=== PATIENT | male | born 1990 | race Caucasian/White ===

== ENCOUNTER 2018-06-11 15:31 | Emergency (ER) | payer OTHER, MEDICAID ==
[2018-06-11] MEDS ORDERED: IBUPROFEN 600 MG TAB PO ONE ×2 (16:34→17:00)
--- NOTE | 2018-06-11 16:38 | EDPHY ---
H & P Time Seen by Provider: 06/11/18 16:02 HPI/ROS: HPI Fall, right-sided rib pain. 28-year-old male by private vehicle. This patient reports that he was walking on a sidewalk on Friday. He misstepped and fell landing primarily on his right anterior lateral chest wall. He complains of pain to the right lower anterior lateral ribs and the right upper mid clavicle region. He denies striking his head. There was no loss of consciousness. He denies any neck pain or back pain. Denies any extremity pain. No loss of sensation or weakness in his extremities. He has no other complaint. ROS: Constitutional: No fever, no chills. No weakness. Eyes: No discharge. No changes in vision. ENT: No sore throat. No nasal congestion or rhinorrhea. Respiratory: No cough. No shortness of breath. Cardiac: No chest pain, no palpitations. Gastrointestinal: No abdominal pain, no vomiting, no diarrhea. Genitourinary: No hematuria. No dysuria or increased frequency with urination. Musculoskeletal: No back pain. No neck pain. As above. Skin: No rashes. Neurological: No headache. No focal weakness or altered sensation. Past medical history: Unspecified heart valve problem. Social history: Nonsmoker. No alcohol. Here by himself. Physical Exam: General Appearance: Alert, no distress. Large man. Obese habitus. This patient is responding to questions appropriately and in full sentences. This patient appears well-hydrated and well-nourished. Head: Normocephalic atraumatic. Face: Facial bones are stable on palpation. Eyes: Pupils equal and round and reactive to light, no pallor or injection. No lid erythema or edema. ENT, Mouth: Mucous membranes moist. Dentition is intact. No malocclusion of the jaw. No tongue lacerations or abrasions. Pharynx is clear. The bilateral nasal canals are clear. No septal hematoma. Respiratory: There are no retractions, lungs are clear to auscultation with good air movement bilaterally. Tenderness on palpation of the right lower anterior lateral rib area between the midclavicular line and mid axillary line. No bony step-off or deformity noted on palpation of this area. No associated soft tissue swelling, ecchymosis or erythema. He also has tenderness on palpation which is mild over the right lateral clavicular area. Again, no bony deformity noted on palpation of the clavicle. No soft tissue swelling or ecchymosis noted on gross inspection of this area. Chest wall is stable to AP and lateral palpation. Cardiovascular: Regular rate and rhythm. No murmur. Gastrointestinal: Abdomen is soft and nontender, no masses, bowel sounds normal. Neurological: Motor sensory function is intact. Cranial nerves are normal. Cerebellar function intact. Skin: Warm and dry, no rashes. No lacerations, abrasions or contusions. Musculoskeletal: Neck is supple and nontender. The trachea is midline. No midline cervical, thoracic, lumbar or sacral tenderness on palpation. No flank tenderness on palpation. Extremities are symmetrical, full range of motion. All joints in the bilateral upper and bilateral lower extremities range without pain or impingement. No tenderness on palpation of the long bones in the bilateral upper and bilateral lower extremities. Psychiatric: No agitation. No depression. Database: EKG: Imaging: Right-sided rib series x-ray with PA chest: Negative for displaced rib fracture. No pneumothorax or other traumatic pathology. Interpreted by me. Procedures: Emergency department course: Triage vital signs reviewed. Vital signs are normal. Patient given 600 mg of ibuprofen. Sent for x-rays as noted above. 5:35 p.m., patient re-evaluated. He appears comfortable. He is sitting up on the gurney. I discussed the results of his x-rays with him. He feels comfortable going home and I feel he is safe for discharge. He will be treated with high-dose ibuprofen over the next 3 days. He has been instructed to follow up with his primary care physician for re-evaluation in 2-3 days. Return to emergency department precautions of thoroughly been reviewed with him. All of his questions were answered. He was discharged in good condition. Differential Diagnosis: The differential diagnosis on this patient includes but is not limited to right chest wall contusion, rib fracture. Pneumothorax, acute spinal traumatic injury , other significant traumatic injury unlikely. This represents a partial list of diagnoses considered. These considerations are based on history, physical exam, past history, reassessment and diagnostic testing. Smoking Status: Never smoked Constitutional: Initial Vital Signs Temperature (C) 36.3 C 06/11/18 15:40 Heart Rate 76 06/11/18 15:40 Respiratory Rate 17 06/11/18 15:40 Blood Pressure 136/98 H 06/11/18 15:40 O2 Sat (%) 94 06/11/18 15:40 O2 Delivery Mode Room Air Allergies/Adverse Reactions: amoxicillin [Amoxicillin] Allergy (Mild, Verified 06/11/18 15:39) Rash hay Allergy (Uncoded 11/03/16 13:07) Home Medications: Medication Instructions Recorded lamoTRIgine [Lamictal] 0 mg PO DAILY 01/21/11 risperiDONE [Risperdal] 1 mg PO BID 02/19/11 Medical Decision Making - Diagnostics Imaging Results: Imaging Impressions Ribs w/Chest X-Ray 06/11/18 16:11 Impression: Negative for displaced rib fracture. - Data Points Medications Given: Discontinued Medications Ibuprofen (Motrin) 600 mg PO EDNOW ONE Stop: 06/11/18 16:35 Last Admin: 06/11/18 16:59 Dose: 600 mg Departure - Departure Disposition: Home, Routine, Self-Care Clinical Impression: Chest wall contusion Condition: Good Instructions: Rib Fracture (ED) Additional Instructions: Read and follow provided instructions. Follow-up with your primary care physician in 1-2 days for re-evaluation. Ibuprofen dosin mg every 6 hours with meals for the next 3 days only. Take only as needed for pain. Return to the emergency department for worsening pain, cough, fever, difficulty breathing or other serious concerns. Referrals: Jamila Maloney [Primary Care Provider] - As per Instructions
[2018-06-11 18:06] VITALS: BP 133/80
== END 2018-06-11 18:06 | disposition home or self-care (01) ==
DX: S20.20XA Contusion of thorax, unspecified, initial encounter (principal); W01.0XXA Fall on same level from slipping, tripping and stumbling without subsequent striking against object, initial encounter; Y92.480 Sidewalk as the place of occurrence of the external cause; Y99.8 Other external cause status; Y93.01 Activity, walking, marching and hiking

== ENCOUNTER 2019-03-04 01:19 | Emergency (ER) | payer OTHER, MEDICAID ==
--- NOTE | 2019-03-04 01:45 | EDPHY ---
H & P Stated Complaint: prairie dog bite left finger Time Seen by Provider: 03/04/19 01:45 HPI/ROS: HPI CHIEF COMPLAINT: Bit on left index finger by prairie dog. HISTORY OF PRESENT ILLNESS: This patient is a 29-year-old male, history of Asperger's, presents emergency room stating that he got bit on the left index finger by a park dog earlier today. He immediately washed his wound. He now presents emergency room he is concerned that he may be infected with rabies. He states he was bit in index finger by [place] local [place]. Patient unsure if his tetanus shot is up-to-date. He does not recall. Past Medical History: Asperger Past Surgical History: Denies significant surgical Social History: Denies drugs alcohol tobacco. Family History: Noncontributory ROS REVIEW OF SYSTEMS: 10 Systems were reviewed and negative with the exception of the elements mentioned in the history of present illness. Exam Constitutional triage nursing summary reviewed, vital signs reviewed, awake/ alert. Eyes normal conjunctivae and sclera, EOMI, PERRLA. HENT normal inspection, atraumatic, moist mucus membranes, no epistaxis, neck supple/ no meningismus, no raccoon eyes. Respiratory clear to auscultation bilaterally, normal breath sounds, no respiratory distress, no wheezing. Cardiovascular rate normal, regular rhythm, no murmur, no edema, distal pulses normal. Gastrointestinal soft, non-tender, no rebound, no guarding, normal bowel sounds, no distension, no pulsatile mass. Genitourinary no CVA tenderness. Musculoskeletal no midline vertebral tenderness, full range of motion, no calf swelling, no tenderness of extremities, no meningismus, good pulses, neurovascularly intact. Skin left index finger: Distal aspect a small less than half a cm abrasion present, no deep laceration or puncture wound no signs of infection on exam good cap refill, neurovascular intact. Neurologic awake, alert and oriented x 3, AAOx3, moves all 4 extremities equally, motor intact, sensory intact, CN II-XII intact, normal cerebellar, normal vision, normal speech. Psychiatric normal mood/affect. Heme/Lymph/Immune no lymphadenopathy. Differential Diagnosis: Includes but is not limited to in a particular soft tissue injury, finger wound, finger contusion, laceration, need for tetanus shot Medical Decision Making: Plan for this patient update his tetanus shot, and re- evaluate. Re-evaluation: Patient's tetanus shot has been updated. I spoke with Infectious Disease Dr. Moran, discussed case in detail. She does not recall any case of rabies from prairie dogs. Did not recommend rabies prophylaxis. I did discussed this with the patient and as well as his mom at bedside. I did offer them rabies vaccination and rabies series and rabies immunoglobulin however they declined this. Source: Patient - Personal History Current Tetanus/Diphtheria Vaccine: Yes Current Tetanus Diphtheria and Acellular Pertussis (TDAP): Yes Tetanus Vaccine Date: 2009 - Medical/Surgical History Hx Asthma: No Hx Chronic Respiratory Disease: No Hx Diabetes: No Hx Cardiac Disease: Yes Hx Renal Disease: No Hx Cirrhosis: No Hx Alcoholism: No Hx HIV/AIDS: No Hx Splenectomy or Spleen Trauma: No Other PMH: asburgers. "Heart Value problem". right arm surgery - Social History Smoking Status: Never smoked Constitutional: Initial Vital Signs Temperature (C) 36.9 C 03/04/19 01:20 Heart Rate 90 03/04/19 01:20 Respiratory Rate 16 03/04/19 01:20 Blood Pressure 132/87 H 03/04/19 01:20 O2 Sat (%) 96 03/04/19 01:20 O2 Delivery Mode Room Air Allergies/Adverse Reactions: amoxicillin [Amoxicillin] Allergy (Mild, Verified 03/04/19 01:24) Rash hay Allergy (Uncoded 03/04/19 01:24) Home Medications: Medication Instructions Recorded lamoTRIgine [Lamictal] 0 mg PO DAILY 01/21/11 risperiDONE [Risperdal] 1 mg PO BID 02/19/11 Medical Decision Making - Data Points Medications Given: Discontinued Medications Diphtheria/Tetanus/Acell Pertussis (Boostrix) 0.5 ml IM .ONCE ONE Stop: 03/04/19 01:58 Last Admin: 03/04/19 02:00 Dose: 0.5 ml Departure - Departure Disposition: Home, Routine, Self-Care Clinical Impression: Animal bite Condition: Good Instructions: Animal Bite (ED) Additional Instructions: 1. Keep the area clean, dry and protected. 2. Watch for signs of infection this includes redness, swelling, pus, drainage, increasing pain 3. Return emergency room if you have any worsening symptoms questions or concerns. 4. Your tetanus shot has been updated tonight. Referrals: [facility] ([facility],. [Edm Groups for Call Sched] - As per Instructions Jamila Maloney [Primary Care Provider] - As per Instructions
[2019-03-04] MEDS ORDERED: TDAP ADULT 0.5 ML INJ (BOOSTRIX) IM ONE (01:57)
[2019-03-04 03:33] VITALS: BP 119/79
== END 2019-03-04 03:36 | disposition home or self-care (01) ==
DX: S60.411A Abrasion of left index finger, initial encounter (principal); W54.0XXA Bitten by dog, initial encounter; Y92.830 Public park as the place of occurrence of the external cause; Z23 Encounter for immunization